=== PATIENT | male | born 1975 | race Caucasian/White ===

== ENCOUNTER 2019-09-22 23:28 | Emergency (ER) | payer MEDICARE, MEDICAID ==
[~2019-09-22] VITALS: Ht 185.4 cm; Wt 122.7 kg
[2019-09-22 23:45] VITALS: BP 154/100
[2019-09-23] MEDS ORDERED: PROP20TA6 PO (00:52)
[2019-09-23] MEDS ORDERED: propranolol 10mg tablet PO ONE (00:55)
== END 2019-09-23 01:07 | disposition home or self-care (01) ==
LOC: ER 23:31
DX: I10 Essential (primary) hypertension (principal); Z76.0 Encounter for issue of repeat prescription; Z79.899 Other long term (current) drug therapy
CPT/HCPCS: 99283